=== PATIENT | female | born 1975 | race African-American/Black ===

== ENCOUNTER 2018-02-09 11:46 | Inpatient (IN) | payer MEDICAID, OTHER ==
[~2018-02-09] VITALS: Ht 162.6 cm; Wt 106.6 kg
[~2018-02-09 11:46] MED LIST: UNKNOWN MEDS
[2018-02-09] MEDS ORDERED: SODIUM CHLORIDE 0.9% 1,000 ML IV ONE (12:05)
[2018-02-09 12:29] LABS: BASOPHILS % 0.6 % (0.0-2.0); EOSINOPHILS % 4.1 % (0.0-5.0); HEMATOCRIT. 34.7 % (36.0-48.0); HEMOGLOBIN. 11.6 g/dL (12.0-16.0); LYMPHOCYTES % 42.3 % (20.0-50.0); MEAN CORPUSCULAR HEMOGLOBIN 30.4 pg (28.0-32.0); MEAN CORPUSCULAR VOLUME 90.7 fL (81.0-99.0); MONOCYTES % 8.5 % (2.0-8.0); NEUTROPHILS % 44.5 % (40.0-76.0); PLATELET 270 x1000/uL (130-400); RED BLOOD CELL COUNT 3.83 mill/uL (4.2-5.4); RED CELL DISTRIBUTION WIDTH 13.6 % (11.6-14.6)
[2018-02-09 12:35] LABS: CHLORIDE 100 mEq/L (98-107)
[2018-02-09 12:42] LABS: INR 1.4; PROTHROMBIN TIME 14.1 sec (9.1-11.1)
[2018-02-09 14:36] LABS: HCG SCREEN NEGATIVE
[2018-02-09 15:45] VITALS: BP 163/100
[2018-02-09] MEDS ORDERED: DEXTROSE 50% WATER 50ML SYRINGE IV PRN (16:15)
[2018-02-09] MEDS ORDERED: CLONIDINE 0.1MG TABLET PO PRN (16:15)
[2018-02-09] MEDS ORDERED: HYDROCODONE/ACETAMINOPHEN 5/325MG TABLET PO PRN (16:15)
[2018-02-09] MEDS ORDERED: ACETAMINOPHEN 325MG TABLET PO PRN (16:15)
[2018-02-09] MEDS ORDERED: ONDANSETRON 4MG ODT PO PRN (16:30)
[2018-02-09 17:15] LABS: CLARITY URINE CLEAR (CLEAR); COLOR URINE YELLOW (YELLOW); KETONES URINE NEGATIVE (NEGATIVE); LEUKOCYTE ESTERASE URINE 1+ (NEGATIVE); NITRITE URINE NEGATIVE (NEGATIVE); OCCULT BLOOD URINE NEGATIVE (NEGATIVE); PROTEIN URINE NEGATIVE (NEGATIVE); SPECIFIC GRAVITY URINE 1.025 (1.005-1.030); UROBILINOGEN URINE 0.2 E.U./dL (0.2-1.0)
[2018-02-09 17:28] LABS: *AMPHETAMINES SCREEN URINE NEGATIVE (NEGATIVE); *BARBITURATES SCREEN URINE NEGATIVE (NEGATIVE); *BENZODIAZEPINES SCREEN URINE NEGATIVE (NEGATIVE); *COCAINE SCREEN URINE NEGATIVE (NEGATIVE); METHADONE URINE SCREEN NEGATIVE (NEGATIVE)
[2018-02-09 17:29] LABS: CANNABINOID URINE SCREEN NEGATIVE (NEGATIVE)
[2018-02-09] MEDS ORDERED: BLOOD SUGAR DIAGNOSTIC STRIP TEST SCH (17:40)
[2018-02-09 17:42] LABS: OPIATES URINE SCREEN PRESUMTIVE POSITIVE (NEGATIVE); PHENCYCLIDINE URINE SCREEN PRESUMTIVE POSITIVE (NEGATIVE)
[2018-02-09 17:56] VITALS: BP 162/100
[2018-02-09] MEDS ORDERED: INSULIN LISPRO 100 UNITS/ML SUBCUT SCH (18:10)
[2018-02-09 19:04] VITALS: BP 140/90
[2018-02-09] MEDS ORDERED: FURO-151 MT ×2 (19:13→19:14)
[2018-02-09 19:47] VITALS: BP 115/75
== END 2018-02-09 20:50 | disposition short-term general hospital (02) | DRG 204 ==
LOC: ER 11:54 → 7WST 13:26 → ENRESERV 13:49
PROVIDERS: ADMIT Internal Medicine; ATTEND Internal Medicine
DX: R55 Syncope and collapse (principal); I10 Essential (primary) hypertension; E11.9 Type 2 diabetes mellitus without complications; F17.210 Nicotine dependence, cigarettes, uncomplicated; J45.909 Unspecified asthma, uncomplicated; Z86.718 Personal history of other venous thrombosis and embolism
CPT/HCPCS: 36415; 70450; 71045; 80053; 80061; 80305; 81003; 82962; 83880; 84443; 84484; 84703; 85025; 85610; 93005; 96360; 96361; 96372; 99285; J1815; J7030

== ENCOUNTER 2019-05-06 03:27 | Emergency (ER) | payer MEDICAID, OTHER ==
[~2019-05-06] VITALS: Ht 172.7 cm; Wt 100.0 kg
[~2019-05-06 03:27] MED LIST changes: +FURO-151 MT; -UNKNOWN MEDS
[2019-05-06 05:03] LABS: BASOPHILS % 0.5 % (0.0-2.0); EOSINOPHILS % 1.3 % (0.0-5.0); HEMATOCRIT. 36.6 % (36.0-48.0); HEMOGLOBIN. 12.5 g/dL (12.0-16.0); LYMPHOCYTES % 33.5 % (20.0-50.0); MEAN CORPUSCULAR HEMOGLOBIN 31.7 pg (28.0-32.0); MEAN CORPUSCULAR VOLUME 92.9 fL (81.0-99.0); MEAN PLATELET VOLUME 9.9 fl (7.4-10.4); MONOCYTES % 6.9 % (2.0-8.0); NEUTROPHILS % 57.8 % (40.0-76.0); PLATELET 220 x1000/uL (130-400); RED BLOOD CELL COUNT 3.94 mill/uL (4.2-5.4); RED CELL DISTRIBUTION WIDTH 13.7 % (11.6-14.6)
[2019-05-06 05:08] LABS: PARTIAL THROMBOPLASTIN TIME 23.5 sec (23.4-31.0); PROTHROMBIN TIME 9.9 sec (9.6-11.0)
[2019-05-06 05:11] LABS: CLARITY URINE TURBID (CLEAR); COLOR URINE YELLOW (YELLOW); KETONES URINE NEGATIVE (NEGATIVE); LEUKOCYTE ESTERASE URINE 2+ (NEGATIVE); NITRITE URINE NEGATIVE (NEGATIVE); OCCULT BLOOD URINE TRACE (NEGATIVE); PROTEIN URINE NEGATIVE (NEGATIVE); SPECIFIC GRAVITY URINE 1.017 (1.005-1.030); UROBILINOGEN URINE 0.2 E.U./dL (0.2-1.0)
[2019-05-06 05:16] LABS: CHLORIDE 101 mEq/L (98-107)
[2019-05-06 05:24] LABS: HCG SCREEN NEGATIVE
[2019-05-06] MEDS ORDERED: MAGNESIUM/ALUMINUM HYDROXIDE/SIMETHICONE 30ML UDC PO STA (07:02)
[2019-05-06] MEDS ORDERED: VISCOUS LIDOCAINE 2% 15 ML UDC PO STA (07:02)
[2019-05-06] MEDS ORDERED: ONDANSETRON HCL 4MG/2ML INJ IV ONE (07:15)
[2019-05-06 08:58] VITALS: BP 142/79
== END 2019-05-06 09:01 | disposition home or self-care (01) ==
LOC: ER 03:35
DX: S00.83XA Contusion of other part of head, initial encounter (principal); N39.0 Urinary tract infection, site not specified; W18.39XA Other fall on same level, initial encounter; Y93.89 Activity, other specified; Y92.89 Other specified places as the place of occurrence of the external cause; Y99.8 Other external cause status; J45.909 Unspecified asthma, uncomplicated; E11.9 Type 2 diabetes mellitus without complications; I10 Essential (primary) hypertension; F17.290 Nicotine dependence, other tobacco product, uncomplicated
CPT/HCPCS: 36415; 70450; 80053; 80320; 81003; 81025; 82962; 83690; 83880; 84484; 84703; 85025; 85610; 85730; 86850; 86900; 86901; 87086; 96374; 99284; 99406; J2405; G0480

== ENCOUNTER 2020-01-22 01:24 | Emergency (ER) | payer MEDICAID ==
[~2020-01-22] VITALS: Ht 167.6 cm; Wt 107.0 kg
[2020-01-22 03:04] LABS: BASOPHILS % 0.8 % (0.0-2.0); HEMATOCRIT. 36.7 % (36.0-48.0); HEMOGLOBIN. 12.4 g/dL (12.0-16.0); LYMPHOCYTES % 34.5 % (20.0-50.0); MEAN CORPUSCULAR HEMOGLOBIN 31.4 pg (28.0-32.0); MEAN CORPUSCULAR VOLUME 93.1 fL (81.0-99.0); MEAN PLATELET VOLUME 8.9 fl (7.4-10.4); MONOCYTES % 5.4 % (2.0-8.0); NEUTROPHILS % 58.3 % (40.0-76.0); PLATELET 267 x1000/uL (130-400); RED BLOOD CELL COUNT 3.94 mill/uL (4.2-5.4); RED CELL DISTRIBUTION WIDTH 14.4 % (11.6-14.6)
[2020-01-22 03:07] LABS: CHLORIDE 105 mEq/L (98-107)
[2020-01-22 05:37] VITALS: BP 157/67
== END 2020-01-22 05:38 | disposition home or self-care (01) ==
LOC: ER 01:24
DX: J45.901 Unspecified asthma with (acute) exacerbation (principal); I11.0 Hypertensive heart disease with heart failure; I50.9 Heart failure, unspecified; E11.9 Type 2 diabetes mellitus without complications; F12.10 Cannabis abuse, uncomplicated; F16.20 Hallucinogen dependence, uncomplicated; Z88.6 Allergy status to analgesic agent; Z79.899 Other long term (current) drug therapy
CPT/HCPCS: 36415; 71045; 80053; 83880; 84484; 85025; 93005; 99285